=== PATIENT | female | born 1985 | race Caucasian/White ===

== ENCOUNTER 2018-07-22 12:59 | Observation (INO) | payer BC ==
[2018-07-22] MEDS ORDERED: LIDOCAINE 2% VISCOUS 15 ML UDCUP PO ONE (13:51)
[2018-07-22] MEDS ORDERED: MAG HYDROX/AL HYDROX/SIMETH 30 ML UDCUP PO ONE (13:51)
[2018-07-22] MEDS ORDERED: HYOSCYAMINE SULFATE 0.125 MG TAB PO ONE (13:51)
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
[2018-07-22 14:16] LABS: PLATELET COUNT 157 10^3/uL (150-400)
[2018-07-22] MEDS ORDERED: ONDANSETRON 4 MG/2 ML VIAL IVP ONE (15:21)
[2018-07-22] MEDS ORDERED: ENALAPRILAT DIHYDRATE 1.25 MG/ML VIAL IVP PRN (16:23)
[2018-07-22] MEDS ORDERED: ONDANSETRON 4 MG/2 ML VIAL IVP PRN ×3 (16:23→22:18)
[2018-07-22] MEDS: HYDROmorphONE/DILAUDID 1 MG/ML INJ IVP PRN ×2 (16:59→17:58)
[2018-07-22] MEDS ORDERED: cefOXitin SODIUM 2 GM in NS 100 ML IV ONE (17:28)
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
[2018-07-22] MEDS ORDERED: LR 1,000 ML IV ONE (18:16)
[2018-07-22] MEDS ORDERED: HEPARIN 1000 UNIT/1 ML MDV ONE (18:36)
[2018-07-22] MEDS ORDERED: BUPIVACAINE 0.5% 30 ML SDV ONE (18:37)
[2018-07-22] MEDS ORDERED: ceFAZolin 1 GM/5 ML SYR ONE (18:37)
[2018-07-22] MEDS ORDERED: MIDAZOLAM 2 MG/2 ML VIAL IVP ONE (19:36)
--- NOTE | 2018-07-22 19:38 | PDANEPAE ---
ANE History of Present Illness iza jaimee ANE Past Medical History - Cardiovascular History Hx Hypertension: No Hx Arrhythmias: No Hx Chest Pain: No Hx Coronary Artery / Peripheral Vascular Disease: No Hx CHF / Valvular Disease: No Hx Palpitations: No - Pulmonary History Hx COPD: No Hx Asthma/Reactive Airway Disease: Yes Hx Recent Upper Respiratory Infection: No Hx Oxygen in Use at Home: No Hx Sleep Apnea: No Sleep Apnea Screening Result - Last Documented: Negative - Endocrine History Hx Diabetes: No Hypothyroid: No Hyperthyroid: No Obesity: mild - Renal History Hx Renal Disorders: No - Liver History Hx Hepatic Disorders: No - Neurological & Psychiatric Hx Hx Neurological and Psychiatric Disorders: No - Chronic Pain History Chronic Pain: No ANE Review of Systems Review of Systems: - Exercise capacity Exercise capacity: >=4 METS ANE Patient History - Allergies Allergies/Adverse Reactions: No Known Allergies Allergy (Unverified 07/22/18 13:07) - Home Medications Home medications: home medication list seen and reviewed Home Medications: Albuterol [Proventil Inhaler HFA (*)] 1 - 2 puffs IH Q4H PRN 07/22/18 [Last Taken 07/21/18] Budesonide/Formoterol 160/4.5 [Symbicort 160-4.5 Mcg Inh (*)] 2 puffs IH HS 03/03 [Last Taken 07/21/18] Fexofenadine HCl [Mara Allergy] 180 mg PO DAILY PRN 07/22/18 [Last Taken 11/03] Fluticasone Propionate [Flonase Allergy Relief] 1 spray [place] DAILY PRN 07/22 [Last Taken 07/18/18] - NPO status NPO Status: no food or drink >8 hours NPO Since - Liquids (Date): 07/22/18 NPO Since - Liquids (Time): 12:45 NPO Since - Solids (Date): 07/21/18 NPO Since - Solids (Time): 21:00 - Anes Hx Anes Hx: no prior problems - Smoking Hx Smoking Status: Former smoker - Alcohol Use Alcohol Use: Sober ANE Labs/Vital Signs - Labs Result Diagrams: 07/22/18 14:00 07/22/18 14:00 - Vital Signs Blood Pressure: 135/99 Heart Rate: 58 Respiratory Rate: 19 O2 Sat (%): 94 Height: 173.99 cm Weight: 87.1 kg ANE Physical Exam - Airway Mallampati Score: Class 2 Mouth exam: normal dental/mouth exam - Pulmonary Pulmonary: no respiratory distress - Cardiovascular Cardiovascular: regular rate and rhythym - ASA Status ASA Status: II ANE Anesthesia Plan Anesthesia Plan: general endotracheal anesthesia
[2018-07-22] MEDS ORDERED: LIDOCAINE 2% 2 ML INJ ONE ×3 (19:40)
[2018-07-22] MEDS ORDERED: ONDANSETRON 4 MG/2 ML VIAL ONE (19:40)
[2018-07-22] MEDS ORDERED: fentaNYL 100 MCG/2 ML INJ ONE ×2 (19:40→21:25)
[2018-07-22] MEDS ORDERED: PROPOFOL 200 MG/20 ML VIAL ONE (19:40)
[2018-07-22] MEDS ORDERED: ROCURONIUM 50 MG/5 ML VIAL ONE ×2 (19:40→19:41)
[2018-07-22] MEDS ORDERED: DEXAMETHASONE 4 MG/ML VIAL ONE (19:41)
[2018-07-22] MEDS ORDERED: NALOXONE HCL 0.4 MG/ML INJ IVP PRN (20:49)
[2018-07-22] MEDS ORDERED: ALBUTEROL 3 ML DEYVIAL IH PRN (20:49)
[2018-07-22] MEDS ORDERED: LR 500 ML IV PRN (20:49)
[2018-07-22] MEDS ORDERED: HYDROmorphONE/DILAUDID 2 MG/ML INJ IVP PRN (20:49)
[2018-07-22] MEDS ORDERED: SUGAMMADEX SODIUM 200 MG/2 ML VIAL IVP ONE (21:05)
--- NOTE | 2018-07-22 21:23 | POSTANESTH ---
Post Anesthetic Evaluation Cardiovascular Status: Normal, Stable Respiratory Status: Normal, Stable Level of Consciousness/Mental Status: Can Participate in Eval Pain Control: Adequate, Prn Tx Ordered Nausea/Vomiting Control: Adequate, Prn Tx Ordered Complications Possibly Related to Anesthesia: None Noted
[2018-07-22] MEDS: fentaNYL 100 MCG/2 ML INJ IVP PRN ×2 (21:30→22:11)
[2018-07-22] MEDS ORDERED: HYDROCODONE/APAP 5/325 TAB ONE (21:34)
--- NOTE | 2018-07-22 22:16 | POSTOPPROG ---
Post Op Note Date of Operation: 07/22/18 Surgeon: Emiliano Del Cid Anesthesiologist: ESTEFANI Anesthesia: GET(General Endotracheal) Pre-op Diagnosis: ACUTE CHOLECYSTITIS Post-op Diagnosis: SAME Indication: PAIN Procedure: LAP VERONICA Findings: EDEMATOUS INFLAMMED GALLBLADDER, SMALL DUCTS Inf/Abcess present in the surg proc area at time of surgery?: Yes Depth: Organ Space EBL: Minimal Complications: 0 Specimen(s): GALLBLADDER
[2018-07-22] MEDS ORDERED: OXYCODONE/APAP 5/325 TAB PO PRN (22:18)
[2018-07-22] MEDS ORDERED: D5W 1/2 NS W/ 20 KCl/L 1,000 ML IV SCH (22:30)
[2018-07-23] MEDS: HYDROmorphONE/DILAUDID 1 MG/ML INJ IVP PRN ×5 (00:05→07:46)
[2018-07-23] MEDS: cefOXitin SODIUM 1 GM in NS 50 ML IV SCH ×3 (00:33→11:45)
[2018-07-23 05:46] LABS: PLATELET COUNT 154 10^3/uL (150-400)
[2018-07-23] MEDS ORDERED: KETOROLAC 30 MG/1 ML SDV IVP ONE (08:28)
--- NOTE | 2018-07-23 08:32 | SOAPPROG ---
SOAP Progress Note Assessment/Plan: Assessment/Plan: 33 Y F s/p lap elyssa, POD#1, for acute acalculous cholecystitis. Pain control. Trial PO dilaudid. Added toradol. Diet. Continue light diet. Continue IV abx while in house. GI ppx c pepcid. Dispo: home later today versus tomorrow mostly pending good pain control. S: c/o pain. Mostly at epigastric incision site. has been OOB. Ate some applesauce. [place] like oxycodone didn't help and needed IV pain meds again this am. O: alert, nad no jaundice ctab anteriorly rrr abd soft, inc cdi 07/23/18 08:31 Objective: Vital Signs Temp Pulse Resp BP Pulse Ox 36.6 C 64 16 111/79 98 07/23/18 07:11 07/23/18 07:11 07/23/18 07:11 07/23/18 07:11 07/23/18 07:11 Laboratory Results 07/23/18 04:49 07/22/18 07/23/18 07/24/18 05:59 05:59 05:59 Intake Total 920 Output Total 955 Balance -35 ICD10 Worksheet Patient Problems: Problems Problem Status Onset Acute cholecystitis Acute
[2018-07-23] MEDS ORDERED: FAMOTIDINE 20 MG TAB PO SCH (09:00)
--- NOTE | 2018-07-23 11:50 | ASMTCMCOM ---
CM Note CM Note Notes: Pt admitted for gallbladder surgery. She is independent and will dc home when medically stable. CM available for any changes. DC Plan: Independent Date Signed: 07/23/2018 11:49 AM Electronically Signed By:Maribell Lopez RN
[2018-07-23] MEDS: HYDROmorphONE/DILAUDID 2 MG TAB PO PRN ×2 (11:53→16:06)
--- NOTE | 2018-07-23 12:43 | GOP ---
DATE OF OPERATION: 07/22/2018 SURGEON: Emiliano Del Cid MD PREOPERATIVE DIAGNOSIS: Acute cholecystitis. POSTOPERATIVE DIAGNOSIS: Acute cholecystitis. PROCEDURE PERFORMED: Laparoscopic cholecystectomy. FINDINGS: Patient was found to have acute cholecystitis with marked edema around the entire gallblad ethan and thickening of the wall. There was some inflammation of the cystic triangle. Ducts were smal l. DESCRIPTION OF PROCEDURE: The patient taken to the operating room where she received satisfactory ge neral endotracheal anesthesia by Dr. Cadet. Placed in the supine position, prepped and draped in th e usual sterile fashion. A periumbilical incision was made. A Veress needle inserted. Pneumoperito neum was established. Trocar was introduced under direct vision. The laparoscope was introduced. G ood visualization was obtained. Three other trocars were placed in the upper abdomen under direct vi aman. The gallbladder was elevated up. Adhesions were taken down. The gallbladder was completely c overed by adhesions and distended. Cystic triangle was carefully exposed. There was marked edema ar ound the lower half of the gallbladder particularly. The cystic triangle was carefully dissected dang e. A good clear view was established. The gallbladder was from the lower portion of the h epatic fossa, and the cystic duct and cystic artery were dissected free and controlled. Both were ev entually multi-hemoclipped and divided with care to avoid injury to the common bile duct which was we ll-visualized. The peritoneum of the gallbladder was incised. The gallbladder was dissected free fr om the bed and the hepatic fossa and extracted through the upper midline port site. Hemostasis was a ssured. Trocars were removed under direct vision. Trocar sites were closed with 0 Vicryl for the fa scia, 4-0 Monocryl subcuticular stitch for the skin. All layers infiltrated with 0.5% Marcaine. Maggie erated procedure well, taken to the recovery room in good condition. No complications. Blood loss n egligible. /[id number]/MODL
[2018-07-23] MEDS ORDERED: KETOROLAC 15 MG/1 ML SDV IVP SCH (14:00)
[2018-07-23 16:57] VITALS: BP 112/73
== END 2018-07-23 19:47 | disposition home or self-care (01) ==
LOC: F3E 16:03
PROVIDERS: ADMIT Surgery; ATTEND Surgery
PROC: 0FT44ZZ Resection of Gallbladder, Percutaneous Endoscopic Approach (ICD-10-PCS; principal; 2018-07-22 19:30)
DX: K81.0 Acute cholecystitis (principal); R05 Cough
CPT/HCPCS: 47562; 71046; 76705; 96374; 96375; 96376; 99285; G0378; J0694; J1100; J1170; J1885; J2250; J2270; J2405; J2704; J3010